=== PATIENT | male | born 1960 | race Caucasian/White ===

== ENCOUNTER → 2018-05-21 | Outpatient (CLI) | payer OTHER | LOC: CAT 07:34 | DX: Z13.6 Encounter for screening for cardiovascular disorders (principal); Z82.49 Family history of ischemic heart disease and other diseases of the circulatory system ==

== ENCOUNTER → 2018-06-15 | Outpatient (CLI) | payer OTHER, BC ==
[~2018-06-15] VITALS: Ht 167.6 cm; Wt 103.9 kg
[~2018-06-15] MED LIST: ASPIR 8181 M1 PO; BASAGLAR K100 UNIT/1 SUBQ; BYSTOLIC 5 MG5 M1 PO; LISINOPRIL20 MG PO; LOPRESSOR25 PO; METFORMIN HCL500 MG PO; SIMVASTATIN40 MG PO; VASCEPA1 GM PO
[2018-06-15 07:16] VITALS: BP 124/83
--- NOTE | 2018-06-15 08:04 | EKG ---
[facility] [employer] [place] [address] ELECTROCARDIOGRAM REPORT Name: CHIKIS JEAN BAPTISTE Room #: REG CLI [facility]#: [id number] ������������������ Admission: 06/15/18 ������������������ Attend Phys: Britton Clark MD, Discharge: ������������������ Date of : 62 Report #: [id number] ����������������������������������������������������������������� [id number] THIS REPORT FOR: //name// [facility] Test Date: 2018-06-15 Test Time: 07:28:39 Pat Name: CHIKIS JEAN BAPTISTE Department: Room: Gender: M Community Development Manager: Obdulio CORNEJO : 1960 Requested By: Britton Clark Order Number: [id number] MD: Christos Lama Measurements Intervals [place] Rate: 83 P: 48 VT: 143 QRS: -4 QRSD: 142 T: 15 QT: 378 QTc: 445 Interpretive Statements Sinus rhythm Right bundle branch block Baseline wander in lead(s) V3 No previous ECG available for comparison Electronically Signed On 06-15-2018 8:04:39 CDT by Christos Lama [email or web address] ��������������������������������������������� <ELECTRONICALLY SIGNED> ���������������������������������������� By: Christos Lama MD, [facility] ��������������������������������������������� 06/15/18 0804 7 7 Christos Lama MD, [facility] /EPI
--- NOTE | 2018-06-15 17:45 | CATHLAB ---
[facility] [place] [address] INVASIVE PROCEDURE REPORT Name: CHIKIS JEAN BAPTISTE Room #: REG [facility]#: [id number] ������������� Admission: 06/15/18 ������������� Attend Phys: Britton Clark, Discharge: ��� ������������� ��� Date of : 62 Date of Service: 06/15/18 1744 �� Report #: [id number] �������� ��������������������������������������������[id number] THIS REPORT FOR: //name// APPROVED REPORT Study performed: 06/15/2018 07:44:04 Patient Details Patient Status: Out-Patient Room #: The patient is a 57 year-old male Event Personnel Britton Clark Business Taxes Specialist, Zaid Booker Monitor, Holly Jackson RT(R)() Higinio, Shannan Fonseca Sandifer, David Monitor, Vance Darling RN Bursar Procedures Performed Art Access - R femoral artery* , Left Heart Catheterization, AortogramArt Access - R femoral artery* Procedure Narrative The RFG^ was infiltrated with 2% Lidocaine subcutaneous anesthesia. A PINNACLE 6FR Sheath #[id number] sheath was inserted into the RFA^. Coronary angiography was performed using coronary diagnostic catheters. The right coronary system was accessed and visualized with a JR4 catheter. The left coronary system was accessed and visualized with a JL4 catheter. The left ventricle was accessed and visualized with a Straight Pigtail catheter. An aortogram of the abdominal aorta was performed. Closure device was deployed with a 6 Fr Mynx. The patient tolerated the procedure well and there were no complications associated with the procedure. There was no hematoma. Intraoperative Conscious Sedation Fentanyl mcg Versed mg Fluoro Time: 1.39 minutes Dose: DAP 4610.00 cGycm2 Contrast Type and Amount: Visipaque 120 ml Hemodynamics The aortic pressure is 127/75 mmHg with a mean of 98 mmHg. The left ventricular pressure is 121/10 mmHg with a mean of mmHg. Conclusion #1 normal left ventricular size and systolic function EF 60-65% [facility] [address] [place] [address] INVASIVE PROCEDURE REPORT Name: CHIKIS JEAN BAPTISTE Room #: REG [facility]#: [id number] ������������� Admission: 06/15/18 ������������� Attend Phys: Britton Clark, Discharge: ��� ������������� ��� Date of : 62 Date of Service: 06/15/18 1744 �� Report #: [id number] �������� ��������������������������������������������[id number] #2 abdominal aortogram revealing normal caliber aorta no aneurysm single bilateral renal arteries and iliac system appear widely patent #3 long left main with mild calcification 20% ostial lesion mild irregularity giving rise to LAD and circumflex #4 LAD is moderately disease in proximal calcification 4050% long proximal narrowing giving rise to a well preserved more distal vessel. Diagonal branch has a 50-60% proximal lesion small to moderate in size #5 circumflex OM is nondominant there is a ramus branch which has a 60% narrowing relatively small in caliber that narrowing is very proximal segment off left main #6 large dominant ectatic right coronary artery heavily proximal calcification with mild irregularity there is a distal long stent that appears to go into the MIKE branch the distal portion of the stent has a 60% in-stent stenosis filling the a larger distal MIKE #7 smaller PDA is mildly diseased Recommendations and plan: Continue aggressive risk factor modification no indication for coronary intervention ��������������������������������������������� <ELECTRONICALLY SIGNED> ���������������������������������������� By: Britton Clark MD, [facility] ��������������������������������������������� 06/15/181743 43 43 Britton Clark MD, FAC /INF
== END | disposition home or self-care (01) ==
LOC: CATH 06:38
DX: I25.10 Atherosclerotic heart disease of native coronary artery without angina pectoris (principal); I10 Essential (primary) hypertension; E78.5 Hyperlipidemia, unspecified; E66.09 Other obesity due to excess calories; E11.9 Type 2 diabetes mellitus without complications; G47.33 Obstructive sleep apnea (adult) (pediatric); E66.01 Morbid (severe) obesity due to excess calories; F17.220 Nicotine dependence, chewing tobacco, uncomplicated; Z79.4 Long term (current) use of insulin; Z95.5 Presence of coronary angioplasty implant and graft; Z82.49 Family history of ischemic heart disease and other diseases of the circulatory system; Z90.49 Acquired absence of other specified parts of digestive tract; Z98.890 Other specified postprocedural states; Z79.899 Other long term (current) drug therapy; Z79.82 Long term (current) use of aspirin